=== PATIENT | female | born 1990 | race Caucasian/White ===

== ENCOUNTER 2018-06-05 21:23 | Emergency (ER) | payer SELFPAY ==
[~2018-06-05] VITALS: Ht 165.1 cm; Wt 94.5 kg
[2018-06-05 21:28] VITALS: BP 126/64; TEMP 97.8
[2018-06-05] MEDS ORDERED: PROAIR HFA0.09 MG/AC IH (21:42)
[2018-06-05] MEDS ORDERED: MEDROL 4MG DOSPA4 MG PO (21:59)
[2018-06-05 22:45] VITALS: PULSE 80
== END 2018-06-05 22:45 | disposition home or self-care (01) ==
LOC: COL.ER 21:23
DX: J42 Unspecified chronic bronchitis (principal)